=== PATIENT | male | born 1965 | race Caucasian/White ===

== ENCOUNTER 2023-06-22 20:52 | Inpatient (IN) | payer OTHER ==
[2023-06-22 21:31] VITALS: BMI 29.6
[2023-06-22] MEDS ORDERED: MAGNESIUM HYDROX 2400MG/30ML ORAL SUSPENSION 30 ML CUP PO PRN (21:52)
[2023-06-22] MEDS ORDERED: POLYETHYLENE GLYCOL (HEALTHYLAX) 3350 17 GM PACKET PO PRN (21:52)
[2023-06-22] MEDS ORDERED: NICOTINE POLACRILEX 2 MG LOZENGE BC PRN (21:52)
[2023-06-22] MEDS ORDERED: BENZOCAINE/MENTHOL (CHLORASEPTIC ) LOZENGE MM PRN (21:52)
[2023-06-22] MEDS ORDERED: guaiFENesin 600 MG TABLET.ER (FP) PO PRN (21:52)
[2023-06-22] MEDS ORDERED: P-EPHED 60MG/TRIPROLIDI 2.5MG TABLET PO PRN (21:52)
[2023-06-22] MEDS ORDERED: MAG HYDROX/AL HYDROX/SIMETH 30 ML UNIT-DOSE CUP PO PRN (21:52)
[2023-06-22] MEDS ORDERED: LOPERAMIDE HCL 2 MG CAPSULE PO PRN (21:52)
[2023-06-22] MEDS ORDERED: BENZONATATE 200 MG CAPSULE PO PRN (21:52)
[2023-06-22] MEDS ORDERED: NALOXONE HCL 0.4 MG/ML VIAL IM PRN (21:52)
[2023-06-22] MEDS ORDERED: NALOXONE HCL (KLOXXADO) 8 MG SPRAY NS PRN (21:52)
[2023-06-22] MEDS ORDERED: DICYCLOMINE HCL 10 MG CAPSULE PO PRN (21:52)
[2023-06-22] MEDS ORDERED: methaDONE HCL 10 MG TABLET (FOR DETOX USE ONLY) ONE (22:11)
[2023-06-22] MEDS ORDERED: cloNIDine HCL 0.1 MG TABLET ONE (22:12)
[2023-06-22] MEDS: methaDONE HCL 10 MG TABLET (FOR DETOX USE ONLY) PO ONE (22:26)
[2023-06-22] MEDS: cloNIDine HCL 0.1 MG TABLET PO PRN (22:26)
[2023-06-22] MEDS: MELATONIN 5 MG TABLETS PO SCH (23:20)
[2023-06-22] MEDS: THIAMINE 100 MG TABLET PO SCH (23:20)
[2023-06-22] MEDS: METHOCARBAMOL 500 MG TABLET PO PRN (23:24)
[2023-06-23] MEDS: PRENATAL VITAMINS W/ FOLIC ACID TABLET (FP) PO SCH (10:14)
[2023-06-23] MEDS: NICOTINE 14 MG/24 HOURS TOPICAL PATCH TD SCH (10:14)
[2023-06-23 11:53] LABS: HEMATOCRIT 36.5 % (35.4-49); HEMOGLOBIN 12.3 GM/dL (11.7-16.9); MCH 29.6 pg (25.7-33.7); MCHC 33.6 g/dl (32.0-35.9); MEAN CELL VOLUME 88.1 fl (80-96); MEAN PLT VOLUME 7.5 fl (7.5-11.1); PLATELET COUNT 346 10^3/uL (134-434); RBC 4.15 M/mm3 (4.00-5.60); RDW 13.9 % (11.9-15.9); WHITE BLOOD COUNT 8.2 K/mm3 (4.0-10.0)
[2023-06-23 11:55] LABS: POTASSIUM 4.3 mmol/L (3.5-5.1)
[2023-06-23 12:09] LABS: ALBUMIN 3.4 g/dl (3.4-5.0); CALCIUM 8.8 mg/dL (8.5-10.1)
[2023-06-23 12:10] LABS: BLOOD UREA NITROGEN 14.3 mg/dL (7-18)
[2023-06-23 12:12] LABS: CREATININE 0.8 mg/dL (0.55-1.3)
[2023-06-23 12:14] LABS: TOT PROT 6.4 g/dl (6.4-8.2)
[2023-06-23] MEDS: MUPIROCIN CA 2% TOPICAL CREAM 15 GM TUBE TP SCH (13:42)
[2023-06-23] MEDS: ACETAMINOPHEN 325 MG TABLET (FP) PO PRN (20:44)
[2023-06-23] MEDS: SULFAMETHOXAZOLE/TRIMETHOPRIM 800MG/160MG D.S. TABLET PO SCH (22:15)
[2023-06-24] MEDS: methaDONE HCL 10 MG TABLET (FOR DETOX USE ONLY) PO ONE (09:53)
[2023-06-25 09:51] VITALS: BP 106/58; PULSE 59; RESP 18; TEMP 99.1
[2023-06-26] MEDS ORDERED: methaDONE HCL 10 MG TABLET (FOR DETOX USE ONLY) PO ONE (10:00)
== END 2023-06-25 11:03 | disposition home or self-care (01) | DRG 773 ==
LOC: YASAS 20:52 → Y6N 22:30 → Y3N 23:51
PROVIDERS: ADMIT Allergy & Immunology; ATTEND Surgery
PROC: HZ2ZZZZ Detoxification Services for Substance Abuse Treatment (ICD-10-PCS; principal; 2023-06-22)
DX: F11.23 Opioid dependence with withdrawal (principal); F17.210 Nicotine dependence, cigarettes, uncomplicated; G47.00 Insomnia, unspecified; Z86.2 Personal history of diseases of the blood and blood-forming organs and certain disorders involving the immune mechanism; Z86.79 Personal history of other diseases of the circulatory system
CPT/HCPCS: 36415; 80053; 80305; 80307; 85027; 86593; 86780; 93005; 93010

== ENCOUNTER 2023-08-09 10:13 | Inpatient (IN) | payer BC ==
[2023-08-09 10:46] VITALS: BMI 27.8
[2023-08-09] MEDS ORDERED: METHOCARBAMOL 500 MG TABLET PO PRN (11:21)
[2023-08-09] MEDS ORDERED: NALOXONE HCL 0.4 MG/ML VIAL IM PRN (11:21)
[2023-08-09] MEDS ORDERED: NALOXONE (NARCAN) HCL 4 MG/0.1 ML SPRAY NS PRN (11:21)
[2023-08-09] MEDS ORDERED: MAGNESIUM HYDROX 2400MG/30ML ORAL SUSPENSION 30 ML CUP PO PRN (11:21)
[2023-08-09] MEDS ORDERED: LOPERAMIDE HCL 2 MG CAPSULE PO PRN (11:21)
[2023-08-09] MEDS ORDERED: NICOTINE POLACRILEX 2 MG LOZENGE BC PRN (11:21)
[2023-08-09] MEDS ORDERED: ACETAMINOPHEN 325 MG TABLET (FP) PO PRN (11:21)
[2023-08-09] MEDS ORDERED: DICYCLOMINE HCL 10 MG CAPSULE PO PRN (11:21)
[2023-08-09] MEDS ORDERED: P-EPHED 60MG/TRIPROLIDI 2.5MG TABLET PO PRN (11:21)
[2023-08-09] MEDS ORDERED: guaiFENesin 600 MG TABLET.ER (FP) PO PRN (11:21)
[2023-08-09] MEDS ORDERED: BENZONATATE 200 MG CAPSULE PO PRN (11:21)
[2023-08-09] MEDS ORDERED: POLYETHYLENE GLYCOL (HEALTHYLAX) 3350 17 GM PACKET PO PRN (11:21)
[2023-08-09] MEDS ORDERED: NICOTINE POLACRILEX 2 MG GUM BUC PRN (11:21)
[2023-08-09] MEDS ORDERED: BENZOCAINE/MENTHOL (CHLORASEPTIC ) LOZENGE MM PRN (11:21)
[2023-08-09] MEDS ORDERED: diazePAM 5 MG TABLET PO PRN (11:24)
[2023-08-09] MEDS ORDERED: methaDONE HCL 10 MG TABLET PO ONE (11:26)
[2023-08-09] MEDS: diazePAM 5 MG TABLET PO SCH (13:34)
[2023-08-09] MEDS: methaDONE HCL 10 MG TABLET PO ONE (13:46)
[2023-08-09] MEDS ORDERED: methaDONE HCL 10 MG TABLET ONE (13:46)
[2023-08-09] MEDS ORDERED: chlordiazePOXIDE HCL 25 MG CAPSULE PO PRN (21:44)
[2023-08-09] MEDS: chlordiazePOXIDE HCL 25 MG CAPSULE PO SCH (22:21)
[2023-08-09] MEDS: MELATONIN 5 MG TABLETS PO SCH (22:22)
[2023-08-09] MEDS: THIAMINE 100 MG TABLET PO SCH (22:22)
[2023-08-10] MEDS: hydrOXYzine PAMOATE 25 MG CAPSULE (FP) PO PRN (07:56)
[2023-08-10] MEDS: methaDONE HCL 10 MG TABLET PO ONE ×3 (09:12→13:50)
[2023-08-10] MEDS: MAG HYDROX/AL HYDROX/SIMETH 30 ML UNIT-DOSE CUP PO PRN (09:15)
[2023-08-10] MEDS: PRENATAL VITAMINS W/ FOLIC ACID TABLET (FP) PO SCH (09:17)
[2023-08-10] MEDS: EMTRICITAB/RILPIVIRI/TENOF ALA (ODEFSEY) TABLET PO SCH (10:33)
[2023-08-10 12:25] LABS: HEMATOCRIT 40.9 % (35.4-49); HEMOGLOBIN 13.6 GM/dL (11.7-16.9); MCHC 33.2 g/dl (32.0-35.9); MEAN CELL VOLUME 87.3 fl (80-96); MEAN PLT VOLUME 7.4 fl (7.5-11.1); PLATELET COUNT 413 10^3/uL (134-434); RBC 4.68 M/mm3 (4.00-5.60); RDW 13.8 % (11.9-15.9); WHITE BLOOD COUNT 7.7 K/mm3 (4.0-10.0)
[2023-08-10 12:58] LABS: POTASSIUM 4.4 mmol/L (3.5-5.1)
[2023-08-10 13:01] LABS: CALCIUM 9.5 mg/dL (8.5-10.1)
[2023-08-10 13:02] LABS: BLOOD UREA NITROGEN 11.5 mg/dL (7-18)
[2023-08-10 13:06] LABS: BILIRUBIN,TOTAL 0.7 mg/dL (0.2-1)
[2023-08-10 13:07] LABS: TOT PROT 7.7 g/dl (6.4-8.2)
[2023-08-10] MEDS: ONDANSETRON *ODT* 4 MG TABLET SL PRN (17:09)
[2023-08-10 20:51] VITALS: BP 119/64
[2023-08-11] MEDS ORDERED: cloNIDine HCL 0.1 MG TABLET PO PRN
[2023-08-11] MEDS: chlordiazePOXIDE HCL 25 MG CAPSULE PO SCH (05:48)
[2023-08-11] MEDS: chlordiazePOXIDE HCL 10 MG CAPSULE PO SCH (05:49)
[2023-08-11] MEDS ORDERED: diazePAM 5 MG TABLET PO SCH (06:00)
[2023-08-11 06:21] VITALS: PULSE 61; RESP 16; TEMP 97.6
[2023-08-11] MEDS: methaDONE HCL 10 MG TABLET PO ONE (09:24)
[2023-08-12] MEDS ORDERED: chlordiazePOXIDE HCL 10 MG CAPSULE PO PRN
[2023-08-12] MEDS ORDERED: chlordiazePOXIDE HCL 10 MG CAPSULE PO SCH (05:00)
[2023-08-12] MEDS ORDERED: diazePAM 5 MG TABLET PO SCH (06:00)
[2023-08-12] MEDS ORDERED: methaDONE HCL 10 MG TABLET PO ONE ×2 (10:00)
[2023-08-13] MEDS ORDERED: chlordiazePOXIDE HCL 10 MG CAPSULE PO ONE (05:00)
[2023-08-13] MEDS ORDERED: methaDONE HCL 10 MG TABLET PO ONE (06:00)
[2023-08-13] MEDS ORDERED: diazePAM 5 MG TABLET PO ONE (06:00)
== END 2023-08-11 09:05 | disposition left against medical advice (07) | DRG 770 ==
LOC: YASAS 10:13 → Y6N 12:54
PROVIDERS: ADMIT Allergy & Immunology; ATTEND Surgery
PROC: HZ2ZZZZ Detoxification Services for Substance Abuse Treatment (ICD-10-PCS; principal; 2023-08-09)
DX: F11.23 Opioid dependence with withdrawal (principal); F17.210 Nicotine dependence, cigarettes, uncomplicated; F10.230 Alcohol dependence with withdrawal, uncomplicated; F32.A Depression, unspecified; B18.2 Chronic viral hepatitis C; G89.28 Other chronic postprocedural pain; Z88.6 Allergy status to analgesic agent
CPT/HCPCS: 36415; 80053; 80305; 80307; 85027; 86593; 86780; Q0162